=== PATIENT | female | born 1995 | race Caucasian/White ===

== ENCOUNTER → 2024-12-25 | Outpatient (CLI) | payer OTHER ==
[~2024-12-25] MED LIST: ISOVUE-370 76% 100 ML VIAL As Ordered ONE
== END ==
LOC: M RAD 08:40
PROVIDERS: ATTEND Otolaryngology
DX: J34.2 Deviated nasal septum (principal); H93.A1 Pulsatile tinnitus, right ear

== ENCOUNTER → 2025-01-07 | Outpatient (CLI) | payer OTHER | LOC: M SLEEP HO 09:55 | PROVIDERS: ATTEND Internal Medicine | DX: R53.83 Other fatigue (principal) ==